=== PATIENT | female | born 1995 ===

== ENCOUNTER 2017-07-09 21:47 | Emergency (ER) | payer MEDICAID ==
[2017-07-09 21:48] VITALS: BMI 38.0
[2017-07-09 22:11] VITALS: BP 139/91; PULSE 94; RESP 20; TEMP 97.8; O2SAT 99
--- NOTE | 2017-07-09 22:56 | C.PDOC ---
History Of Present Illness 21 year old female presents to the ED c/o vaginal discharge with foul smell, itching that started yesterday. Patient has a Hx of yeast infection and she states the symptoms this time feel the same. Patient denies abdominal pain, dysuria, hematuria, UTI symptoms. Time Seen by Provider: 07/09/17 22:20 Chief Complaint (Nursing): Female Genitourinary History Per: Patient History/Exam Limitations: no limitations Onset/Duration Of Symptoms: Days Current Symptoms Are (Timing): Still Present Quality Of Discomfort: "Pain" Associated Symptoms: Other (Vaginal discharge) Recent travel outside of the [place]: No Additional History Per: Patient Abnormal Vaginal Bleeding: No Past Medical History Reviewed: Historical Data, Nursing Documentation, Vital Signs Vital Signs: Last Vital Signs Temp 97.8 F 07/09/17 22:04 Pulse 94 H 07/09/17 22:04 Resp 20 07/09/17 22:04 BP 139/91 H 07/09/17 22:04 Pulse Ox 99 07/10/17 01:06 - Medical History PMH: Gastritis Surgical History: Cholecystectomy (X1) Family History: States: Unknown Family Hx - Social History Hx Tobacco Use: No Hx Alcohol Use: No Hx Substance Use: No - Immunization History Hx Tetanus Toxoid Vaccination: No Hx Influenza Vaccination: No Hx Pneumococcal Vaccination: No Review Of Systems Constitutional: Negative for: Fever Gastrointestinal: Negative for: Nausea, Vomiting, Abdominal Pain Genitourinary: Positive for: Vaginal Discharge. Negative for: Dysuria, Hematuria, Vaginal Bleeding, Pelvic Pain Musculoskeletal: Negative for: Back Pain Physical Exam - Physical Exam Appears: Non-toxic, No Acute Distress Skin: Normal Color, Warm, Dry Eye(s): bilateral: Normal Inspection Cardiovascular: No Murmur Gastrointestinal/Abdominal: Soft, No Tenderness Pelvic: Vaginal Discharge (White thick to the vulvovaginal area, fishy odor), No Cervical Motion Tenderness Neurological/Psych: Oriented x3, Normal Speech, Normal Cognition ED Course And Treatment O2 Sat by Pulse Oximetry: 99 (On RA) Pulse Ox Interpretation: Normal Progress Note: Patient's UA for came back negative. Patient is resting comfortably, and is in no acute distress. Patient was instructed to follow up with PMD in 1-2 days for further evaluation Disposition Counseled Patient/Family Regarding: Diagnosis, Need For Followup, Rx Given - Disposition Referrals: Matteo Castaneda MD [Medical Doctor] - Disposition: HOME/ ROUTINE Disposition Time: 22:50 Condition: STABLE Additional Instructions: Please follow up with [facility] Take motrin as directed Return to ER if worse Prescriptions: Fluconazole [Diflucan] 150 mg PO ONCE #1 tab metroNIDAZOLE [Flagyl] 500 mg PO BID #14 tab Instructions: Vulvovaginal Candidiasis (ED) Forms: [employer] (Botswanan) - Clinical Impression Clinical Impression: Bacterial vaginitis - 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 - Scribe Statement The provider has reviewed the documentation as recorded by the Scribe Vignesh Mcclellan All medical record entries made by the Scribe were at my direction and personally dictated by me. I have reviewed the chart and agree that the record accurately reflects my personal performance of the history, physical exam, medical decision making, and the department course for this patient. I have also personally directed, reviewed, and agree with the discharge instructions and disposition.
== END 2017-07-09 23:15 | disposition home or self-care (01) ==
LOC: C.ER 21:47
DX: N76.0 Acute vaginitis (principal)

== ENCOUNTER 2017-08-04 21:20 | Emergency (ER) | payer MEDICAID ==
[2017-08-04 21:21] VITALS: BMI 38.0
[2017-08-04 21:41] VITALS: RESP 20
--- NOTE | 2017-08-04 23:08 | C.PDOC ---
History Of Present Illness 21 year old female presents to the ER with a complaint of abdominal pain that began today. Denies dysuria, fever, chest pain, or SOB. Patient states she took a home test that was "invalid" and believes she might be . Patient reports a surgical Hx of in 2014. Patient also reports having an abscess to his inner thigh. Patient was seen on 07/09/17 for foul smelling vaginal discharge and vaginal itching and on 07/01/17 for sore throat and headache. Time Seen by Provider: 08/04/17 22:17 Chief Complaint (Nursing): Abdominal Pain History Per: Patient History/Exam Limitations: no limitations Onset/Duration Of Symptoms: Hrs Current Symptoms Are (Timing): Still Present Location Of Pain/Discomfort: Diffuse Radiation Of Pain To:: None Associated Symptoms: denies: Fever, Chills Exacerbating Factors: None Alleviating Factors: None Recent travel outside of the [place]: No Additional History Per: Patient Abnormal Vaginal Bleeding: No Past Medical History Reviewed: Historical Data, Nursing Documentation, Vital Signs Vital Signs: Last Vital Signs Temp 99.4 F 08/05/17 00:31 Pulse 100 H 08/05/17 00:31 Resp 20 08/05/17 00:31 BP 135/85 08/05/17 00:31 Pulse Ox 98 08/05/17 02:07 - Medical History PMH: No Chronic Diseases, Gastritis Surgical History: Comment Only: Cholecystectomy (X1) Family History: States: Unknown Family Hx - Social History Hx Tobacco Use: No Hx Alcohol Use: No Hx Substance Use: No - Immunization History Hx Tetanus Toxoid Vaccination: No Hx Influenza Vaccination: No Hx Pneumococcal Vaccination: No Review Of Systems Constitutional: Negative for: Fever, Chills, Weakness, Malaise Eyes: Negative for: Pain ENT: Negative for: Ear Pain, Nose Congestion Cardiovascular: Negative for: Chest Pain Respiratory: Negative for: Cough, Shortness of Breath, Hemoptysis, SOB with Excertion, Pleuritic Pain, Sputum, Wheezing Gastrointestinal: Positive for: Abdominal Pain. Negative for: Nausea, Vomiting , Diarrhea, Constipation Genitourinary: Negative for: Dysuria, Frequency, Incontinence, Hematuria, Vaginal Discharge, Vaginal Bleeding, Pelvic Pain Musculoskeletal: Negative for: Neck Pain, Back Pain Skin: Negative for: Rash Neurological: Negative for: Weakness, Numbness, Incoordination, Confusion, Seizures Psych: Negative for: Anxiety, Depression Physical Exam - Physical Exam Appears: Non-toxic, No Acute Distress Skin: Normal Color, Warm, Dry Head: Atraumatic, Normacephalic Eye(s): bilateral: Normal Inspection Ear(s): Bilateral: Normal Nose: Normal Oral Mucosa: Moist Tongue: Normal Appearing Lips: Normal Appearing Teeth: Normal Dentition Gingiva: Normal Appearing Throat: Normal Neck: Normal Chest: Symmetrical, No Tenderness Cardiovascular: Rhythm Regular Respiratory: Normal Breath Sounds, No Rales, No Rhonchi, No Wheezing Gastrointestinal/Abdominal: Soft, No Tenderness Extremity: Other (2mm abscess to inner thigh) Neurological/Psych: Oriented x3, Normal Speech ED Course And Treatment O2 Sat by Pulse Oximetry: 98 (Room air) Pulse Ox Interpretation: Normal - Incision & Drainage Of Abscess Prep Used: Sterile Water Procedure: Incised W/Scalpel Blade#: (11), Drained Pus (2cc), Irrigated Cavity W /Saline (50cc), Packed W/Gauze Medical Decision Making Medical Decision Making: Plan: * Upreg * UA * * ua neg/ urine preg neg * pt tolerated I/D well. Disposition - Disposition Referrals: [facility] at [facility] [Outside] [facility] at [facility] [Outside] [facility] [place] [Outside] [facility] [Outside] Disposition: HOME/ ROUTINE Disposition Time: 12:00 Condition: STABLE Instructions: Acute Abdominal Pain (ED), Abscess (ED) Forms: [facility] (Yi) - Clinical Impression Clinical Impression: Abdominal pain, Abscess - Scribe Statement The provider has reviewed the documentation as recorded by the Scribhai Duenas All medical record entries made by the Juan Aibhai were at my direction and personally dictated by me. I have reviewed the chart and agree that the record accurately reflects my personal performance of the history, physical exam, medical decision making, and the department course for this patient. I have also personally directed, reviewed, and agree with the discharge instructions and disposition.
[2017-08-04 23:18] LABS: RBC URINE 2 /hpf (0-3); URINE BILIRUBIN NEGATIVE (NEGATIVE); URINE BLOOD NEGATIVE (NEGATIVE); URINE COLOR Yellow (YELLOW); URINE GLUCOSE (UA) NORMAL (Normal); URINE KETONE NEGATIVE (NEGATIVE); URINE LEUKOCYTE ESTERASE NEG Leu/uL (Negative); URINE PROTEIN NEGATIVE (NEGATIVE); WBC URINE 3 /hpf (0-5)
[2017-08-05 00:32] VITALS: BP 135/85; PULSE 100; TEMP 99.4
[2017-08-05 02:08] VITALS: O2SAT 98
== END 2017-08-05 00:41 | disposition home or self-care (01) ==
LOC: C.ER 21:20
DX: R10.9 Unspecified abdominal pain (principal); L02.419 Cutaneous abscess of limb, unspecified